=== PATIENT | male | born 1985 | race Caucasian/White ===

== ENCOUNTER 2023-04-11 17:09 | Emergency (ER) | payer OTHER ==
[2023-04-11] MEDS ORDERED: DIPHTH,PERTUSS(ACELL),TET 0.5 ML DISP.SYRIN IM ONE ×2 (17:15→18:06)
[2023-04-11 17:19] VITALS: BP 136/86; PULSE 76; RESP 18; TEMP 98; BMI 27.8
== END 2023-04-11 18:13 | disposition home or self-care (01) ==
LOC: JERFT 17:09
PROC: 0HQEXZZ Repair Left Lower Arm Skin, External Approach (ICD-10-PCS; principal; 2023-04-11)
PROC: 3E0234Z Introduction of Serum, Toxoid and Vaccine into Muscle, Percutaneous Approach (ICD-10-PCS; 2023-04-11)
DX: S51.812A Laceration without foreign body of left forearm, initial encounter (principal); W27.4XXA Contact with kitchen utensil, initial encounter; Y93.G1 Activity, food preparation and clean up
CPT/HCPCS: 90715; 99282-25

== ENCOUNTER 2023-04-21 08:54 | Emergency (ER) | payer OTHER ==
[2023-04-21 08:58] VITALS: BP 119/77; PULSE 78; RESP 18; TEMP 97.3; BMI 27.6
[2023-04-21] MEDS ORDERED: BACITRACIN ZINC 15 GM TUBE TOPICAL OINTMENT ONE (09:33)
== END 2023-04-21 09:43 | disposition home or self-care (01) ==
LOC: JERFT 08:54
DX: Z48.02 Encounter for removal of sutures (principal)
CPT/HCPCS: 99282-25